=== PATIENT | female | born 1985 | race Caucasian/White ===

== ENCOUNTER 2021-09-22 23:19 | Emergency (ER) | payer OTHER ==
--- OUTSIDE RECORDS SUMMARY | 2021-09-22 23:21 | XMS REPORT | Continuity of Care Document ---
:1985 Author Organization [facility] Address [facility] [place] [address] Care Team Providers Name Role Phone Doctor Unassigned, Name Attending Clinician Unavailable Gerri Morrical DO Attending Clinician Elder Marti MD Attending Clinician GERRI MORRICAL Attending Clinician Unavailable Problems This patient has no known problems. Allergies, Adverse Reactions, Alerts Allergy Allergy Status Severity Reaction(s) Onset Inactive Treating Comm ents Source Name Type Date Date Clinician Sulfa Propensi Active Rash 2019-0 Univers (Sulfona ty to 7-15 ity of mide adverse 00:00: [place] Antibiot reaction 00 Medica l ics) s Branch SULFA Drug Active Rash 2020-0 Univers (SULFONA Class 7-15 ity of MIDE 00:00: [place] ANTIBIOT 00 Medical ICS) Branch Social History Social Habit Start Date Stop Date Quantity Comments Source Sex Assigned At Uni versity [facility] Exposure to SARS-CoV-2 Not sure [facility] [place] (event) [facility] Smoking Status Start Date Stop Date Source Unknown if ever smoked Universit y [facility] Medications Ordered Filled Start Stop Current Ordering Indication Dosage Frequency Signature Comments Components Source Medication Medication Date Date Medication? Clinician (SIG) Name Name diphenhydrA 0 2020- No 50mg 50 mg, Uni vers MINE 10-31 Oral, ity of (BENADRYL) 04:15: 03:14 ONCE, 1 Jae as tablet 50 00 :00 dose, [facility] Medic al mg 10/31/19 at Branch 2315, MARY ANN ibuprofen 2019-0 2020- No 800mg 800 mg, Uni vers (IBU) 10-3117 Oral, ity of tablet 800 02:15: 01:19 ONCE, 1 Jae as mg 00 :00 dose, [facility] 10/31/19 at Branch 2115, MARY ANN ketorolac 2019- No 30mg 30 mg, Unive rs (TORADOL) 10-30 Slow IV ity of injection 13:15: 12:33 Push, ONCE [place] 30 mg 00 :00 NOW, 1 Medical dose, [facility]da Branch 10/31/19 at 0815, MARY ANN
Fa culty member approving Restricted medication : GERRI DYER, GUSARAN NaCl 0.9% No 1000mL at 999 Uni vers (NS) bolus 10-30 mL/hr, ity of infusion 12:30: 15:35 1,000 mL, Jae as 1,000 mL 00 :00 IV Medical Infusion, Branch ONCE, 1 dose, Gerda 10/31/19 at 0730, STAT acetaminoph No 1000mg 1,000 mg, Univers en 10-30 Oral, ity of (TYLENOL) 10:45: 10:08 ONCE, 1 [place] :00 dose, [facility] Medical 1,000 mg 10/31/19 at [facility] h 0545, Routine No known No Univers medications [facility] No known No Univers medications [facility] Vital Signs Vital Name Observation Time Observation Value Comments Source Systolic blood 2019-11-01 13:10:00 127 mm[Hg] Univer sity of pressure [facility] Diastolic blood 2019-11-01 13:10:00 76 mm[Hg] Unive rsity of pressure [facility] Heart rate 2019-11-01 13:10:00 80 /min General acute hospital Body temperature 2019-11-01 13:10:00 36.72 [facility] Respiratory rate 2019-11-01 13:10:00 18 /min [facility] Oxygen saturation in 2019-11-01 13:10:00 100 /min [facility] Arterial blood by [facility] Pulse oximetry Branch Body weight 2019-10-31 04:57:53 68.04 kg General acute hospital Procedures Procedure Date / Time Performing Clinician Source Performed EXTERNAL PROVIDER 2019-11-13 05:01:00 Doctor Unassigned, No Univ [facility] RECORDS Name Medical Branch GALV/CLC ONLY - URINE 2019-10-31 15:35:00 Gerri Dyer, [facility] DRUG (IMMUNOASSAY) - [facility] COMPREHENSIVE DRUG SCREEN URINALYSIS 2019-10-31 15:34:00 Gerri Dyer [facility] CT ABDOMEN PELVIS WO 2019-10-31 12:30:09 Gerri Dyer, [facility] CONTRAST [facility] COVID-19 (ID NOW RAPID 2019-10-31 06:50:00 Gerri Dyer, [facility] TESTING) [facility] TEST, SERUM 2019-10-31 05:36:00 Gerri Dyer, [facility] TROPONIN I 2019-10-31 05:36:00 Gerri Dyer, [facility] COMP. METABOLIC PANEL 2019-10-31 05:36:00 Gerri Dyer, [facility] ([id number]) [facility] SALICYLATE 2019-10-31 05:36:00 Gerri Dyer [facility] ETHANOL 2019-10-31 05:36:00 Gerri Dyer, [facility] CBC WITH DIFF 2019-10-31 05:36:00 Gerri Dyer, [facility] CBC WITH DIFFERENTIAL 2019-10-31 05:36:00 Gerri Dyer, [facility] EKG-12 LEAD 2019-10-31 05:02:55 Gerri Dyer, [facility] EMERGENCY DEPARTMENT 2019-10-30 05:01:00 Doctor Unassigned, No U [facility] DOCUMENTS Name [facility] Encounters Start End Encounter Admission Attending Care Care Encounter Source Date/Time Date/Time Type Type Clinicians Facility Department ID 2019-11-13 2019-11-13 Orders Doctor CATHERINE [id number] Univers 00:00:00 00:00:00 Only Unassigned, LYNN [id number] ity of [place] [id number] Jae as [id number] [place] [address] Branch 2019-10-30 2019-11-01 Emergency Carlos Ferrara TRAUMA [id number] Univers 23:57:47 13:01:00 Willian Marti [id number] ity of 4.2.7.2.686 Mukesh harden [id number] [address] 2019-10-30 2019-10-30 Emergency X GERRI [facility] ERT [id number] Univers 23:57:47 23:57:47 MORRICAL, ity of [facility] Results Test Description Test Time Test Comments Results Result Comments Source DRUG PANEL 2 URINE 2019-10-31 16:29:00 Test Item Value Reference Range Interpretation Comme nts AMPHET (test code = 9670666620) Negative Negative ELY U (test code = 8059825726) Negative Negative BENZO U (test code = 6900299825) Negative Negative Cocaine Metabolite (test code = Negative Negative 2437741798) METHADONE (test code = 8766508490) Negative Negative OPIATES (test code = 7534779701) Negative Negative PCP (test code = 1298985862) Negative Negative THC (test code = 5213323699) Negative Negative GRAEME (test code = GRAEME) Urine Drug Cutoff Ranges Cocaine: ? 150 ng/mLBenzodiazepines: ? ? 200 ng/mLMethadone: ? 300 ng/mLAmphetamine: ? 1,000 ng/mLOpiates: ? 300 ng/mLCannabinoids: ?50 ng/mLPhencyclidine: ? ? ? 25 ng/mLBarbiturates: ?200 ng/mL The results are to be used only for medical (i.e., treatment) purposes. Unconfirmed screening results must not be used for non-medical purposes (e.g., employment testing, legal testing). Lab Interpretation (test code = Normal 04798-3) [facility] Center[facility]inalysis2020-07-[facility] 15:49:00 Test Item Value Reference Range Interpretation Comments APPEARANCE (test code = Clear Clear 3331134628) COLOR (test code = Yellow Yellow 4589053522) PH (test code = 4.8-8.0 4566741524) SP GRAVITY (test code = 1.003-1.030 7790506758) GLU U QUAL (test code = Normal Normal 1034748481) BLOOD (test code = 2+ Negative A 8126340280) KETONES (test code = Negative Negative 1039511205) PROTEIN (test code = Negative Negative 2887-8) UROBILIN (test code = Normal Normal 0432565315) BILIRUBIN (test code = Negative Negative 8710659593) NITRITE (test code = Negative Negative 2311206352) LEUK YOU (test code = Negative Negative 0265212871) RBC/HPF (test code = See_Comment H [Autom ated message] 7650157024) The system [employer] generated this result transmitted ref erence range: 0 - 3 HP F. The reference range was not used to int erpret this result as normal/abnormal . WBC/HPF (test code = See_Comment [Autom ated message] 8920193555) The system [employer] generated this result transmitted ref erence range: 0 - 5 HP F. The reference range was not used to int erpret this result as normal/abnormal . BACTERIA (test code = Negative Negative 2039512294) MUCOUS (test code = Slight Negative LPF A 0617914905) SQ EPITH (test code = See_Comment [Auto mated message] 6195379301) The system [employer] generated this result transmitted ref erence range: <=2 HPF. The reference range was not used to int erpret this result as normal/abnormal . Lab Interpretation (test Abnormal code = 42370-5) [facility] CenterCT [facility] PEL[facility] WO [id number] 14:51:23 Nonobstructing right renal stones measuring up to 3 mm. A large amount of stool in the colon suggests constipation. Preliminary Report Dictated by Resident: Pratima Browne ?MD. Kunal, have reviewed this study and agree with theabove report.EXAM: CT ABDOMEN AND PELVIS WITHOUT CONTRAST HISTORY: Flank pain, recurrent stone disease suspected Right flank pain COMPARISON: None. TECHNIQUE AND FINDINGS: Contiguous axial imaging from the level of the lungbases through the pubic symphysis was performed without the intravenousadministration of contrast. Coronal and sagittal reconstructions wereobtained. ?Auto mA and/or iterative reconstruction were used to reduceradiation dose. FINDINGS: LOWER THORAX: The lungs bases are clear. No cardiomegaly. LIVER: The liver is enlarged at 19.4 cm. No focal hepatic lesions. ?Normalliver contour. GALLBLADDER AND BILIARY TREE: No biliary ductal dilation. ?No gallbladderwall thickening. SPLEEN: No splenomegaly. PANCREAS: No ductal dil ation or masses. ADRENAL GLANDS: No adrenal nodules. KIDNEYS: Nonobstructing right renal stones noted measuring up to 3 mm.. PERITONEUM AND RETROPERITONEUM: No free air or fluid. LYMPH NODES: No lymphadenopathy. GI TRACT: No dilation or wall thickening. A large amount of stool in thecolon suggests constipation. PELVIS/BLADDER: The uterus is retroverted. The urinary bladder isunremarkable. VESSELS: Unremarkable. BONES AND SOFT TISSUES: No suspicious lytic or sclerotic bony lesions. [facility], Radiant Results Inft User - 10/31/2019 9:52 AM CDTEXAM: CT ABDOMEN AND PELVIS WITHOUT CONTRASTHISTORY: Flank pain, recurrent stone disease suspected Right flank painCOMPARISON: None.TECHNIQUE AND FINDINGS: Contiguous axial imaging from the level of the lungbases through the pubic symphysis was performed without the intravenousadministration of contrast. Coronal and sagittal reconstructions wereobtained. Auto mA and/or iterative reconstruction were used to reduceradiation dose.FINDINGS:LOWER THORAX: The lungs bases are clear. No cardiomegaly.LIVER: The liver is enlarged at 19.4 cm. No focal hepatic lesions. Normalliver contour.GALLBLADDER AND BILIARY TREE: No biliary ductal dilation. No gallbladderwall thickening.SPLEEN: No splenomegaly.PANCREAS: No ductal dilation or masses.ADRENAL GLANDS: No adrenal nodules.KIDNEYS: Nonobstructing right renal stones noted measuring up to 3 mm..PERITONEUM AND RETROPERITONEUM: No free air or fluid.LYMPH NODES: No lymphadenopathy.GI TRACT: No dilation or wall thickening.A large amount of stool in thecolon suggests constipation.PELVIS/BLADDER: The uterus is retroverted.The urinary bladder isunremarkable.VESSELS: Unremarkable.BONES AND SOFT TISSUES: No suspicious lytic or sclerotic bony lesions.IMPRESSIONNonobstructing right renal stones measuring up to 3 mm.A large amount of stool in the colon suggests constipation.Preliminary Report Dictated by Resident: Pratima Carl MD., have reviewed this study and agree with theabovereport.[facility] CenterCOVID[facility] (ID NOW RAPID TESTING) 2019-10-31 07:55:00 Test Item Value Reference Range Interpretation Comments SARS-CoV-2 Rapid ID NOW Not Detected Not Detected (test code = 08893-3) GRAEME (test code = GRAEME) ID NOW COVID-19 Assay is an isothermal nucleic acid amplification test intended for the qualitative detection of nucleic acid from SARS-CoV-2 viral RNA in nasopharyngeal (ROVING INSPECTOR) specimens. It is used under Emergency Use Authorization (EUA) by FDA. The limit of detection (LOD) of the assay is 125 Genome Equivalents/mL. A positive result is indicative of the presence of SARS-CoV-2 RNA. ?Clinical correlation with patient history and other diagnostic information is necessary to determine patient infection status. A negative (Not Detected) result does not preclude SARS-CoV-2 infection. In patients with clinical symptoms and other tests that are consistent with SARS-CoV-2 infection, negative results should be treated as presumptive negative and a new specimen should be tested with alternative PCR molecular test. Invalid: Please collect a new specimen for repeat patient testing if clinically indicated. Lab Interpretation Normal (test code = 69703-4) [facility] CenterSUSANA [id number] 06:24:00 Test Item Value Reference Range Interpretation Comments TROPONIN I (test 0.002 ng/mL See_Comment [Automated code = 4339071119) message] The system which generated this result transmitted reference range : <=0.034. The reference range was not used to interpret this result as normal/abnormal . GRAEME (test code = Equal or Less than GRAEME) 0.034 ng/ml---Normal ?Note: Cardiac troponin begins to rise 3-4 hours after the onset of ischemia. Repeat in 4-6 hours if the sample was drawn within 3-4 hours of the onset of the symptom and found normal. Between 0.035 and 0.120 ng/mL--- Borderline. Questionable myocardial injury or necrosis ? ?Note: Serial measurement may be necessary to confirm or exclude the diagnosis of myocardial injury or necrosis; Clinical correlation (symptoms, EKGs, imaging studies, and others) required; Repeat in 4-6 hours if clinically indicated. ? Equal or Higher than 0.121 ng/mL---Abnormal. Myocardial Injury or Necrosis Likely ? Biotin has been reported to cause a negative bias, interpret results relative to patient's use of biotin. ? Lab Interpretation Normal (test code = 14638-6) [facility] CenterSALICYLATE2020-07-16 06:11:00 Test Item Value Reference Range Interpretation Comments SALICYLATE (test code <10 mg/L = 2132230093) GRAEME (test code = GRAEME) Therapeutic Range: ? Analgesic and Antipyretic Use ? 20-100 mg/L ? ? Anti-Inflammatory Use ? 100-250 mg/L Toxic Range: ? Greater than 300 mg/L [facility] CenterETHANOL2020-07-16 06:11:00 Test Item Value Reference Range Interpretation Comments ALCOHOL (test code = <10 mg/dL 7064853535) GRAEME (test code = Toxic Greater than or GRAEME) equal to 80 mg/dL. NOTE: Whole blood values are approximately 10% to 15% lower than serum and plasma. [facility] CenterACETAMINOPHEN2020-07-16 06:03:00 Test Item Value Reference Range Interpretation Comments ACETAMINOP (test code = <10.0 10-30 L 0052647434) GRAEME (test code = GRAEME) Toxic: Greater than 200 ug/mL @ 4 hour post ingestion or greater than 50 ug/mL @ 12 hour post ingestion Lab Interpretation (test Abnormal code = 19317-3) [facility] CenterCOM. METABOLIC PANEL (46511)2019-10-31 05:59:00 Test Item Value Reference Range Interpretation Comments NA (test code = 141 mmol/L 135-145 0433074801) K (test code = 4.5 mmol/L 3.5-5 3012454400) CL (test code = 104 mmol/L 98-108 7032081244) CO2 TOTAL (test code = 25 mmol/L 23-31 0891486600) AGAP (test code = 2-16 3496468243) BUN (test code = 2 mg/dL 7-23 L 3328973131) GLUCOSE (test code = 111 mg/dL 70-110 H 7471280101) CREATININE (test code = 0.57 mg/dL 0.5-1.04 4422342491) TOTAL BILI (test code = 0.1 mg/dL 0.1-1.6 2944736651) CALCIUM (test code = 9.9 mg/dL 8.6-10.6 1130318154) T PROTEIN (test code = 8.1 g/dL 6.3-8.2 5758219837) ALBUMIN (test code = 4.9 g/dL 3.5-5 7687968623) ALK PHOS (test code = 111 U/L 34-122 9870932960) ALTv (test code = 24 U/L 5-35 1742-6) AST(SGOT) (test code = 30 U/L 13-40 4269651104) eGFR Calculation mL/min/1.73m2 (Non-) (test code = 5174802681) eGFR Calculation mL/min/1.73m2 () (test code = 6099183344) GRAEME (test code = GRAEME) Association of Glomerular Filtration Rate (GFR) and Staging of Kidney Disease* + --+ --+ ------+| GFR (mL/min/1.73 m2) ?| With Kidney Damage ?| ?Without Kidney Damage+ --------+ --------+ +| ?>90 ?| ?Stage one ?| ? Normal ?+ ---+ ---+ -------+| ?60-89 ?| ?Stage two ?| ? Decreased GFR ? + --+ --+ ------+| ?30-59 ?| ?Stage three ?| ? Stage three ? + --+ --+ ------+| ?15-29 ?| ?Stage four ? | ? Stage four ?+ ---+ ---+ -------+| ?<15 (or dialysis) ? ?| ?Stage five ? | ? Stage five ?+ ---+ ---+ -------+ *Each stage assumes the associated GFR level has been in effect for at least three months. ?Stages 1 to 5, with or without kidney disease, indicate chronic kidney disease. Notes: Determination of stages one and two (with eGFR >59mL/min/1.73 m2) requires estimation of kidney damage for at least three months as defined by structural or functional abnormalities of the kidney, manifested by either:Pathological abnormalities or Markers of kidney damage (including abnormalities in the composition of the blood or urine or abnormalities in imaging tests). Lab Interpretation Abnormal (test code = 72376-5) [facility] CenterPregnancy Test, [id number] 05:57:00 Test Item Value Reference Range Interpretation Comments PREG SERUM (test code Negative = 4429813977) GRAEME (test code = GRAEME) Less than 10 IU/L. ?If low titer or ectopic is suspected, resubmit specimen in 48-72 hours. [facility] CenterCBC WITH [id number] 05:56:00 Test Item Value Reference Range Interpretation Comments WBC (test code = See_Comment H [Automated 4564-2) message] The system which generated this result transmit arik reference range : 4.30 - 11.10 10*3/?L. The reference range was not used to interpret this result as normal/abnormal . RBC (test code = See_Comment [Automated 829-8) message] The system which generated this result transmit arik reference range : 3.93 - 5.25 10*6/?L. The reference range was not used to interpret this result as normal/abnormal . HGB (test code = 11.9 g/dL 11.6-15 718-7) HCT (test code = 36.7 % 35.7-45.2 4544-3) MCV (test code = 93.1 fL 80.6-95.5 787-2) MCH (test code = 30.2 pg 25.9-32.8 785-6) MCHC (test code = 32.4 g/dL 31.6-35.1 786-4) RDW-SD (test code = 46.5 fL 39-49.9 48672-3) RDW-CV (test code = 13.7 % 12-15.5 788-0) PLT (test code = See_Comment [Automated 777-3) message] The system which generated this result transmit arik reference range : 166 - 358 10*3/ ?L. The reference range was not u sed to interpret th is result as normal/abnormal . MPV (test code = 9.5 fL 9.5-12.9 75099-2) NRBC/100 WBC (test See_Comment [Automat ed code = 0827470370) message] The system which generated this result transmit arik reference range : 0.0 - 10.0 /100 WBCs. The reference range was not used to interpret this result as normal/abnormal . NRBC x10^3 (test code <0.01 See_Comment [Auto mated = 0570302286) message] The system which generated this result transmit arik reference range : 10*3/?L. The reference range was not used to interpret this result as normal/abnormal . GRAN MAT (NEUT) % 86.9 % (test code = 770-8) IMM GRAN % (test code 0.40 % = 2226525354) LYMPH % (test code = 8.5 % 736-9) MONO % (test code = 4.0 % 5905-5) EOS % (test code = 0.0 % 713-8) BASO % (test code = 0.2 % 706-2) GRAN MAT x10^3(ANC) 11.39 10*3/uL 1.88-7.09 H (test code = 4391744854) IMM GRAN x10^3 (test 0.05 10*3/uL 0-0.06 code = 9214575734) LYMPH x10^3 (test code 1.11 10*3/uL 1.32-3.29 L = 731-0) MONO x10^3 (test code 0.53 10*3/uL 0.33-0.92 = 742-7) EOS x10^3 (test code = <0.03 0.03-0.39 L 711-2) BASO x10^3 (test code 0.03 10*3/uL 0.01-0.07 = 704-7) Lab Interpretation Abnormal (test code = 58460-1) [facility]"
[2021-09-23 00:55] LABS: Absolute Lymphocytes (CBC) 1.4 K/uL (0.7-4.9); Hematocrit 38.6 % (36.0-45.0); Lymphocytes % 20.6 % (15.3-44.8); MPV 7.6 fL (7.6-11.3); RBC Red Blood Cell Count 4.31 M/uL (3.86-4.86)
[2021-09-23 01:18] LABS: Potassium 3.3 mmol/L (3.5-5.1); Thyroid Stimulating Hormone 0.955 uIU/mL (0.360-3.740); Troponin High Sensitivity 10.4 pg/mL (<58.9)
[2021-09-23] MEDS ORDERED: KCL 20 MEQ/100 mL IVPB 100 ML IV ONE (02:05)
[2021-09-23] MEDS ORDERED: NA CHLORIDE 0.9% 500 ML ONE (02:05)
--- NOTE | 2021-09-23 05:03 | ER ---
Nurse's Notes [facility] Name: Laure Molina Age: 36 yrs Sex: Female : 1985 Arrival Date: 09/22/2021 Time: 23:29 Bed 17 Private MD: Diagnosis: Dyspnea, unspecified;Palpitations;Hypokalemia Presentation: 09/22 23:33 Chief complaint: EMS states: "We were called for a c/o CP, SOB, body pain and fatigue vc1 for the last 2 years they have been trying to get her diagnosed with an autoimmune disease. She has an undiagnosed medical history of cardiac and hypertension. She sees her cousin that is a senior insight manager international for this.". Risk Assessment: Do you want to hurt yourself or someone else?. Onset of symptoms is unknown. 23:33 Acuity: ELENA 3 vc1 23:33 Method Of Arrival: EMS: [facility] vc1 23:38 Chief complaint: Patient states: Feels like there is a lot of pressure in my chest and vc1 my heart is beating really fast. I have been having symptoms for about a year. I have all over body pain often. [place] then about 2 I started feeling worse than normal, my neck was hurting. I was feeling light headed and woosey. I am more fatiqued than normal. I was having all over body pain, then my heart started pounding really fast then I felt like I needed to go to the bathroom, I needed to poop, and needed to vomit. My Chest pain got worse and I felt like I was going to black out.". Coronavirus screen: Vaccine status: Patient reports being unvaccinated. shortness of breath, At this time, the client does not indicate any symptoms associated with coronavirus-19. Ebola Screen: No symptoms or risks identified at this time. Initial Sepsis Screen: Does the patient meet any 2 criteria? RR > 20 per min. HR > 90 bpm. Yes Does the patient have a suspected source of infection? Yes: Acute abdominal pain. Triage Assessment: 23:53 General: Appears in no apparent distress. uncomfortable, Behavior is anxious. Pain: vc1 Complains of pain in abdomen. Neuro: Level of Consciousness is awake, alert, obeys commands, Oriented to person, place, time, situation, Appropriate for age. Cardiovascular: Denies chest pain, fatigue, lightheadedness, nausea, palpitations. Respiratory: Reports no shortness of breath Airway is patent Respiratory effort is even, unlabored, Respiratory pattern is regular, tachypnea Onset: The symptoms/episode began/occurred just prior to arrival, the patient has mild shortness of breath. 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 - Social history:: Smoking status: Patient denies any tobacco usage or history of. - Family history:: pertinent for heart disease. - Hospitalizations: : No recent hospitalization is reported. Screenin:54 Abuse screen: Denies threats or abuse. Nutritional screening: No deficits noted. vc1 Tuberculosis screening: No symptoms or risk factors identified. Fall Risk None identified. Assessment: 09/23 00:35 General: Appears in no apparent distress. uncomfortable, Behavior is calm, cooperative. bb Neuro: Level of Consciousness is awake, alert, obeys commands, Oriented to person, place, time, situation. Cardiovascular: Capillary refill < 3 seconds Patient's skin is warm and dry. Respiratory: Airway is patent Respiratory effort is even, unlabored, Breath sounds are clear bilaterally. GI: No signs and/or symptoms were reported involving the gastrointestinal system. Derm: Skin is pink, warm \\T\\ dry. Musculoskeletal: Circulation, motion, and sensation intact. 01:00 Cardiovascular: Rhythm is sinus tachycardia. bb 01:19 Reassessment: Patient is alert, oriented x 3, equal unlabored respirations, skin bb warm/dry/pink. family at bedside. 02:41 Reassessment: Patient is alert, oriented x 3, equal unlabored respirations, skin bb warm/dry/pink. IV site intact, patent, fluids infusing. Family at bedside. 04:33 Reassessment: Patient is alert, oriented x 3, equal unlabored respirations, skin bb warm/dry/pink. pt resting quietly awaiting results of repeat troponin spouse at bedside. 05:19 Reassessment: Patient is alert, oriented x 3, equal unlabored respirations, skin bb warm/dry/pink. pt verbalized understanding of and agrees to plan of care discharge instructions given pt ambulated with steady gait to exit accompanied by spouse. Vital Signs: 09/22 23:38 BP 149 / 85; Pulse 139; Resp 22; Temp 98.1; Pulse Ox 100% ; vc1 09/23 01:19 BP 142 / 84; Pulse 115; Resp 17 S; Pulse Ox 99% on R/A; bb 02:42 BP 122 / 79; Pulse 99; Resp 16 S; Pulse Ox 98% on R/A; bb 04:33 BP 115 / 77; Pulse 91; Resp 20 S; Pulse Ox 98% on R/A; bb 05:20 BP 139 / 95; Pulse 98; Resp 18 S; Temp 99(O); Pulse Ox 100% on R/A; bb ED Course: 09/22 23:29 Patient arrived in ED. ja2 23:30 Shabbir Alvarado MD is Attending Physician. rn 23:35 Triage completed. vc1 23:54 Arm band placed on right wrist. vc1 09/23 00:21 Adriana Zhang, STEFANIE is Primary Nurse. bb 00:30 XRAY Chest (1 view) In Process Unspecified. EDMS 00:35 Patient has correct armband on for positive identification. Bed in low position. Call bb light in reach. Side rails up X 1. Adult w/ patient. Client placed on continuous cardiac and pulse oximetry monitoring. NIBP monitoring applied. 00:40 Initial lab(s) drawn, by me, sent to lab. Inserted saline lock: 20 gauge in right bb antecubital area, using aseptic technique. Blood collected. 04:33 Repeat lab(s) drawn. by me, sent to lab. EKG done, by ED staff, reviewed by Shabbir moreland MD. 05:20 No provider procedures requiring assistance completed. IV discontinued, intact, bb bleeding controlled, No redness/swelling at site. Pressure dressing applied. Administered Medications: 02:08 Drug: Potassium Chloride 20 mEq Route: IV; Rate: calculated rate; Site: right bb antecubital; 04:32 Follow up: IV Status: Completed infusion; IV Intake: 100ml bb 02:08 Drug: NS 0.9% 500 ml Route: IV; Rate: bolus; Site: right antecubital; bb 04:32 Follow up: IV Status: Completed infusion; IV Intake: 500ml bb Intake: 04:32 IV: 100ml; Total: 100ml. bb 04:32 IV: 500ml; Total: 600ml. bb Outcome: 05:03 Discharge ordered by . rn 05:21 Discharged to home ambulatory, with family. bb 05:21 Condition: stable 05:21 Discharge instructions given to patient, Instructed on discharge instructions, follow up and referral plans. Demonstrated understanding of instructions, follow-up care. 05:21 Patient left the ED. bb Signatures: Dispatcher [employer] EDAdriana Angela RN RN bb Nieto, Roman, MD MD rn Alexander, Jessica ja2 Calcote, Vanessa, RN RN vc1
--- NOTE | 2021-09-23 05:03 | EDPHYS ---
Physician Documentation [facility] Name: Laure Molina Age: 36 yrs Sex: Female : 1985 Arrival Date: 09/22/2021 Time: 23:29 Bed 17 Private MD: ED Physician Shabbir Alvarado HPI: 09/22 23:34 This 36 yrs old Female presents to ER via Unassigned with complaints of Shortness Of rn Breath. 23:34 The patient has shortness of breath at rest. Onset: The symptoms/episode began/occurred rn 2 year(s) ago. Duration: The symptoms are intermittent. The patient's shortness of breath is aggravated by exertion, light activity, is alleviated by nothing. Severity of symptoms: At their worst the symptoms were moderate in the emergency department the symptoms have improved. The patient has not experienced similar symptoms in the past. The patient has not recently seen a physician. Pt and report chest pain and sob for about 2 years, no gross changes, [place], not from here. Takes coreg. Does not feel ill. No fever. EMS reports seems very anxious and sinus tachycardia on monitor. No meds given or interventions. . 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 - Social history:: Smoking status: Patient denies any tobacco usage or history of. - Family history:: pertinent for heart disease. - Hospitalizations: : No recent hospitalization is reported. ROS: 23:34 Constitutional: Negative for fever, chills, and weight loss, Eyes: Negative for injury, rn pain, redness, and discharge, Neck: Negative for injury, pain, and swelling, Cardiovascular: + chest pain and palpitations Respiratory: + sob Abdomen/GI: Negative for abdominal pain, nausea, vomiting, diarrhea, and constipation, MS/Extremity: Negative for injury and deformity, Skin: Negative for injury, rash, and discoloration, Neuro: Negative for headache, numbness, tingling, and seizure. Exam: 23:34 Constitutional: This is a well developed, well nourished patient who is awake, alert, rn appears anxious, constantly looking at monitors. Head/Face: Normocephalic, atraumatic. Eyes: Periorbital areas with no swelling, redness, or edema. Cardiovascular: Tachycardic, regular Respiratory: Mild tachypnea, no retractions, speaking full sentences. Abdomen/GI: Soft, non-tender Skin: Warm, dry MS/ Extremity: Pulses equal, no cyanosis. Neurovascular intact. Full, normal range of motion. Equal circumference. Neuro: Awake and alert, GCS 15 Vital Signs: 23:38 BP 149 / 85; Pulse 139; Resp 22; Temp 98.1; Pulse Ox 100% ; vc1 09/23 01:19 BP 142 / 84; Pulse 115; Resp 17 S; Pulse Ox 99% on R/A; bb 02:42 BP 122 / 79; Pulse 99; Resp 16 S; Pulse Ox 98% on R/A; bb 04:33 BP 115 / 77; Pulse 91; Resp 20 S; Pulse Ox 98% on R/A; bb 05:20 BP 139 / 95; Pulse 98; Resp 18 S; Temp 99(O); Pulse Ox 100% on R/A; bb MDM: 09/22 23:30 Patient medically screened. rn 09/23 03:27 ED course: HR down to 86, stable vitals, BP improved. Waiting on repeat trop and ecg. rn If normal will dc home with return precautions.. 05:02 Differential diagnosis: Anxiety Reaction Bronchitis Myocardial Infarction pneumonia, rn Pneumothorax pulmonary edema, Pulmonary Embolism reactive airway disease. Data reviewed: vital signs, nurses notes, lab test result(s), EKG, radiologic studies, plain films, and as a result, I will discharge patient. Counseling: I had a detailed discussion with the patient and/or guardian regarding: the historical points, exam findings, and any diagnostic results supporting the discharge/admit diagnosis, lab results, radiology results, the need for outpatient follow up, to return to the emergency department if symptoms worsen or persist or if there are any questions or concerns that arise at home. Special discussion: I discussed with the patient/guardian in detail that at this point there is no indication for admission to the hospital. It is understood, however, that if the symptoms persist or worsen the patient needs to return immediately for re-evaluation. ED course: Repeat trop neg. Normal vitals now, feels much better, will dc home with return precautions.. 09/22 23:59 Order name: Basic Metabolic Panel; Complete Time: 01:39 rn 09/22 23:59 Order name: CBC with Diff; Complete Time: 01:39 rn 09/22 23:59 Order name: D-Dimer; Complete Time: 01:39 rn 09/22 23:59 Order name: NT PRO-BNP; Complete Time: 01:39 rn 09/22 23:59 Order name: Troponin HS; Complete Time: 01:39 rn 09/22 23:59 Order name: TSH; Complete Time: 01:39 rn 09/22 23:59 Order name: XRAY Chest (1 view) rn 09/22 23:59 Order name: EKG; Complete Time: 23:59 rn 09/22 23:59 Order name: Cardiac monitoring; Complete Time: 01:18 rn 09/22 23:59 Order name: T4 Free; Complete Time: 01:39 rn 09/23 02:43 Order name: Troponin High Sensitivity; Complete Time: 05:02 rn 09/23 02:43 Order name: EKG; Complete Time: 02:44 rn 09/22 23:59 Order name: EKG - Nurse/Tech; Complete Time: 01:18 rn 09/22 23:59 Order name: IV Saline Lock; Complete Time: 00:59 rn 09/22 23:59 Order name: Labs collected and sent; Complete Time: 00:59 rn 09/22 23:59 Order name: O2 Per Protocol; Complete Time: 00:59 rn 09/22 23:59 Order name: O2 Sat Monitoring; Complete Time: 01:00 rn 09/23 02:43 Order name: EKG - Nurse/Tech; Complete Time: 04:32 rn Administered Medications: 02:08 Drug: Potassium Chloride 20 mEq Route: IV; Rate: calculated rate; Site: right bb antecubital; 04:32 Follow up: IV Status: Completed infusion; IV Intake: 100ml bb 02:08 Drug: NS 0.9% 500 ml Route: IV; Rate: bolus; Site: right antecubital; bb 04:32 Follow up: IV Status: Completed infusion; IV Intake: 500ml bb Disposition Summary: 09/23/21 05:03 Discharge Ordered Location: Home rn Problem: an ongoing problem rn Symptoms: have improved rn Condition: Stable rn Diagnosis - Dyspnea, unspecified rn - Palpitations rn - Hypokalemia rn Followup: rn - With: Private Physician - When: As needed - Reason: Recheck today's complaints, Re-evaluation by your physician Discharge Instructions: - Discharge Summary Sheet rn - Palpitations rn - Shortness of Breath, Adult rn - Hypokalemia rn Forms: - Medication Reconciliation Form rn - Thank You Letter rn - Antibiotic admissions rn - Prescription Opioid Use rn Signatures: Dispatcher [employer] Adriana Clemens, RN RN Shabbir Chavez MD MD rn Calcote, Vanessa, RN RN vc1
[2021-09-23 06:13] VITALS: BP 139/95; TEMP 99; O2SAT 100
--- NOTE | 2021-09-23 06:27 | EKG ---
Test Date: 2021-09-23 Test Time: 04:26:02 Manager Intensive Care Unit: EDMAR MEASUREMENT RESULTS: Intervals: Rate: 98 NH: 146 QRSD: 82 QT: 346 QTc: 441 [place]: P: 8 NH: 146 QRS: 32 T: 35 INTERPRETIVE STATEMENTS: Normal sinus rhythm Cannot rule out Anterior infarct, age undetermined Abnormal ECG Compared to ECG 09/23/2021 01:02:26 Sinus tachycardia no longer present Myocardial infarct finding still present Electronically Signed On 09-23-21 06:27:30 CDT by Jamarcus Hansen
--- NOTE | 2021-09-23 06:27 | EKG ---
Test Date: 2021-09-23 Test Time: 01:02:26 Batch Maker: EDMAR MEASUREMENT RESULTS: Intervals: Rate: 117 [place]: 146 QRSD: 80 QT: 332 QTc: 463 [place]: P: 43 [place]: 146 QRS: 67 T: 32 INTERPRETIVE STATEMENTS: Sinus tachycardia Cannot rule out Anterior infarct, age undetermined Abnormal ECG No previous ECG available for comparison Electronically Signed On 09-23-21 06:27:33 CDT by Jamarcus Hansen
--- NOTE | 2021-09-23 17:40 | RAD REPORT ---
EXAM DESCRIPTION: RAD - Chest Single View - 09/23/2021 12:29 am CLINICAL HISTORY: CHEST PAIN COMPARISON: None. TECHNIQUE: XR CHEST 1 VIEW 09/22/2021 11:59 PM CDT FINDINGS: Cardiac silhouette is normal in size. Lungs are clear without consolidation, atelectasis, mass or edema. There is no pleural effusion. There is no pneumothorax. There are no acute osseous fin dings. IMPRESSION: Clear lungs. Electronically signed by: Jason López MD 09/23/2021 12:43 AM CDT Due to temporary technical issues with the PACS/Fluency reporting system, reports are being signed by the in house radiologists without review as a courtesy to insure prompt reporting. The interpreting radiologist is fully responsible for the content of the report.
== END 2021-09-23 05:21 | disposition home or self-care (01) ==
LOC: ER 23:19
DX: R06.00 Dyspnea, unspecified (principal); E87.6 Hypokalemia; R00.2 Palpitations; I10 Essential (primary) hypertension; Z88.2 Allergy status to sulfonamides
CPT/HCPCS: 96365; 93005 ×2; 85025; 80048; 36415; 85379; 84443; 84484 ×2; 84439; 83880; 71045; 99284; 96366; J3480; J7040